=== PATIENT | female | born 1995 | race Caucasian/White ===

== ENCOUNTER 2022-08-18 17:23 | Observation (INO) | payer MEDICAID, OTHER ==
[~2022-08-18] VITALS: Ht 162.6 cm; Wt 90.7 kg
== END 2022-08-18 20:15 | disposition home or self-care (01) ==
LOC: SPU 17:23
PROVIDERS: ADMIT Obstetrics & Gynecology; ATTEND Obstetrics & Gynecology
DX: O26.853 Spotting complicating pregnancy, third trimester (principal); Z3A.39 39 weeks gestation of pregnancy
CPT/HCPCS: 81002; G0378

== ENCOUNTER 2022-08-26 09:19 | Inpatient (IN) | payer OTHER ==
[~2022-08-26] VITALS: Ht 162.6 cm; Wt 90.7 kg
[2022-08-26] MEDS ORDERED: LR 1,000 ML IV ONE (10:00)
[2022-08-26] MEDS ORDERED: NALBUPHINE HCL 10 MG/ML AMP IVP PRN (10:00)
[2022-08-26] MEDS ORDERED: LR 1,000 ML IV SCH (10:00)
[2022-08-26] MEDS ORDERED: FENT2mCg/mL-ROPIVA0.2%/NS EPID 200 ML EP SCH (11:00)
[2022-08-26] MEDS ORDERED: ONDANSETRON HCL 4 MG/2 ML VIAL IVP PRN (11:00)
[2022-08-26 11:06] LABS: BASOPHILS % (AUTO) 0.5 % (0.0-2.0); EOSINOPHILS % (AUTO) 0.6 % (0.0-4.0); HEMATOCRIT 39.8 % (36-48); MEAN CORPUSCULAR VOLUME 85 fL (79.0-98.0); MONOCYTES # (AUTO) 0.3 K/uL (0.0-1.0); MONOCYTES % (AUTO) 4.4 % (1.7-9.3); NEUTROPHILS # (AUTO) 4.5 K/uL (1.8-7.7); NEUTROPHILS % (AUTO) 77.5 % (40.0-70.0); PLATELET COUNT (AUTO) 105 K/uL (130-430); RED BLOOD CELL COUNT(AUTO) 4.68 MIL/uL (4.2-6.2); WHITE BLOOD COUNT (AUTO) 5.7 K/uL (4.8-10.8)
[2022-08-26] MEDS ORDERED: OXYTOCIN/0.9 % SODIUM CHLORIDE 1,000 ML IV SCH (11:45)
[2022-08-26] MEDS ORDERED: ROPIVACAINE HCL/PF 0.2% 200 ML ONE (14:14)
[2022-08-26] MEDS ORDERED: fentaNYL CITRATE/PF 100 MCG/2 ML AMP ONE (14:15)
[2022-08-26 14:17] VITALS: BP_SYST 125
[2022-08-26] MEDS ORDERED: OXYTOCIN/0.9 % SODIUM CHLORIDE 1,000 ML IV ONE (22:30)
[2022-08-27] MEDS ORDERED: NALOXONE HCL 0.4 MG/ML AMP (NARCAN) ONE (00:02)
[2022-08-27] MEDS ORDERED: LIDOCAINE PF 1% 30ML(POUR BTL) INJ ONE (00:02)
[2022-08-27] MEDS ORDERED: LIGHT MINERAL OIL 10 ML VIAL MC ONE (00:02)
[2022-08-27] MEDS ORDERED: WITCH HAZEL LEAF 1 MED.PAD MED.PAD TP PRN (01:30)
[2022-08-27] MEDS ORDERED: ANUSOL 1 EA SUPP.RECT (PREPARATION H) RC PRN (01:30)
[2022-08-27] MEDS ORDERED: DERMOPLAST SPRAY TP PRN (01:30)
[2022-08-27] MEDS ORDERED: OXYTOCIN/0.9 % SODIUM CHLORIDE 1,000 ML IV ONE (01:30)
[2022-08-27] MEDS ORDERED: OXYCODONE/ACETAMINOPHEN 5-325 TABLET PO PRN (01:30)
[2022-08-27] MEDS ORDERED: OXYTOCIN/0.9 % SODIUM CHLORIDE 1,000 ML IV SCH (01:30)
[2022-08-27] MEDS ORDERED: HYDROCORTISONE 0.5% CREAM 28.4 GM CREAM.GM. TP PRN (01:30)
[2022-08-27] MEDS ORDERED: MEASLES,MUMPS&RUBELLA VACC/PF 12500 UNIT/0.5 ML VIAL SUBQ PRN (01:30)
[2022-08-27] MEDS ORDERED: DIPHTH,PERTUSS(ACELL),TET VAC 0.5 ML VIAL (Tdap) I.M. PRN (01:30)
[2022-08-27] MEDS ORDERED: LANOLIN 7 GM OINT. TP PRN (01:30)
[2022-08-27] MEDS ORDERED: RHO(D) IMMUNE GLOBULIN/MALTOSE 1500 UNITS/1.3 ML (WINHRO) IM PRN (01:30)
[2022-08-27] MEDS ORDERED: TEMAZEPAM 15 MG CAPSULE PO PRN (01:30)
[2022-08-27] MEDS ORDERED: ACETAMINOPHEN I.V. 1000 MG 100 ML IV PRN (01:45)
[2022-08-27] MEDS ORDERED: ACETAMINOPHEN 650 MG/20.3 ML UDC GT PRN (02:00)
[2022-08-27] MEDS ORDERED: ACETAMINOPHEN 500 MG TABLET ONE (02:06)
[2022-08-27] MEDS ORDERED: ACETAMINOPHEN 500 MG TABLET PO PRN (02:15)
[2022-08-27] MEDS ORDERED: DOCUSATE SODIUM 100 MG CAPSULE PO SCH (09:00)
[2022-08-27] MEDS: IBUPROFEN 600 MG TABLET PO SCH ×2 (12:37→17:58)
[2022-08-27] MEDS ORDERED: SENNOSIDES/DOCUSATE SODIUM 1 TAB TABLET(SENOKOT-S) PO SCH (21:00)
[2022-08-28] MEDS: IBUPROFEN 600 MG TABLET PO SCH ×3 (00:14→13:06)
[2022-08-28 11:06] LABS: HEMOGLOBIN 9.6 g/dL (12.0-16.0)
== END 2022-08-28 13:13 | disposition home or self-care (01) | DRG 560 ==
LOC: SPU 09:19 → OBSVTOIN 09:30
PROVIDERS: ADMIT Obstetrics & Gynecology; ATTEND Obstetrics & Gynecology
PROC: 10E0XZZ Delivery of Products of Conception, External Approach (ICD-10-PCS; principal; 2022-08-27)
PROC: 3E0R3BZ Introduction of Anesthetic Agent into Spinal Canal, Percutaneous Approach (ICD-10-PCS; 2022-08-27)
PROC: 00HU33Z Insertion of Infusion Device into Spinal Canal, Percutaneous Approach (ICD-10-PCS; 2022-08-27)
DX: O77.0 Labor and delivery complicated by meconium in amniotic fluid (principal); Z37.0 Single live birth; D62 Acute posthemorrhagic anemia; O69.81X0 Labor and delivery complicated by cord around neck, without compression, not applicable or unspecified; Z3A.00 Weeks of gestation of pregnancy not specified
CPT/HCPCS: 36415; 81002; 82962; 85018; 85025; 86592; 86886; 86900; 86901; 94760; G0378; J2001; J2300; J2310; J2405; J2590; J3010